=== PATIENT | female | born 1940 | race Asian ===

== ENCOUNTER 2021-12-23 20:55 | Inpatient (IN) | payer OTHER, MEDICARE, SELFPAY ==
[~2021-12-23] VITALS: Ht 149.9 cm; Wt 69.9 kg
[2021-12-23 20:55] VITALS: BP_SYST 205
--- NOTE | 2021-12-23 21:35 | NUR ---
Patient to ER bed 8 to gown for evaluation. Side rails up, bed in low and locked position.
--- NOTE | 2021-12-23 21:43 | NUR ---
Dr. Wiley with patient. Addendum: 12/23/21 at 2144 by [email or web address] ER Doctor, Dr. Wiley at bedside examining patient.
--- NOTE | 2021-12-23 22:08 | NUR ---
Spoke to patient's son, Karri, and was informed of patient's medical history per patient's son stated. Physician informed of patient's history and Dr. Saunders is patient's cardiac doctor in [facility] at [phone]. Physician informed that patient's son stated Dr. Saunders said patient is borderline hypertensive. Physician informed of patient's history of breast cancer, right sided mastectomy and sentinel lymph node removed, and physician informed of patient's OBGYN Dr. Winifred Martinez, phone number [phone]. Physician informed of patient's home medications per patient's son stated. Physician verbalized understanding, no further questions.
[2021-12-23] MEDS ORDERED: LIP40 PO (22:27)
[2021-12-23] MEDS ORDERED: ASPI-1393 PO (22:28)
[2021-12-23] MEDS ORDERED: ENALAPRILAT DIHYDRATE 1.25 MG/ML VIAL IVP ONE (22:30)
[2021-12-23 22:34] LABS: MEAN CORPUSCULAR HEMOGLOBIN 30 pg (27-31); MEAN CORPUSCULAR HGB CONC 33 % (32-36)
[2021-12-23 22:38] LABS: BASOPHILS % (AUTO) 0.1 % (0.0-2.0); EOSINOPHILS # (AUTO) 0.1 K/uL (0.0-0.4); EOSINOPHILS % (AUTO) 0.6 % (0.0-4.0); HEMATOCRIT 41.5 % (36-48); HEMOGLOBIN 13.8 g/dL (12.0-16.0); LYMPHOCYTES % (AUTO) 9.7 % (20.5-51.5); MEAN CORPUSCULAR VOLUME 91 fL (79.0-98.0); MONOCYTES # (AUTO) 0.2 K/uL (0.0-1.0); MONOCYTES % (AUTO) 2.1 % (1.7-9.3); NEUTROPHILS # (AUTO) 9.2 K/uL (1.8-7.7); NEUTROPHILS % (AUTO) 87.5 % (40.0-70.0); PLATELET COUNT (AUTO) 202 K/uL (130-430); RED BLOOD CELL COUNT(AUTO) 4.57 MIL/uL (4.2-6.2); RED CELL DISTRIBUTION WIDTH 14.5 % (9.0-15.0); WHITE BLOOD COUNT (AUTO) 10.5 K/uL (4.8-10.8)
[2021-12-23 23:13] LABS: CHLORIDE 100 mmol/L (98-107); POTASSIUM 3.9 mmol/L (3.5-5.1); SODIUM SERUM 135 mmol/L (136-145)
[2021-12-23 23:14] LABS: ALANINE AMINOTRANSFERASE 41 U/L (12-78); ANION GAP 11 (5-15); ASPARTATE AMINOTRANSFERASE 37 U/L (10-37); CALCIUM 9.4 mg/dL (8.4-11.0); CREATININE 0.82 mg/dL (0.55-1.30); GLUCOSE 173 mg/dL (70-99); TOTAL BILIRUBIN 0.3 mg/dL (0.0-1.0); UREA NITROGEN, BLOOD 20 mg/dL (8-21)
--- NOTE | 2021-12-23 23:14 | NUR ---
PATIENT LYING IN BED, NO C/O PAIN OR S/S OF DISTRESS. PATIENT CHEST RISE AND FALL SYMMETRICAL. PATIENT RESTING COMFORTABLY, BED IN LOW AND LOCKED POSITION, 3 BED RAILS UP.
[2021-12-23 23:15] LABS: ALBUMIN 3.9 g/dL (3.4-4.8)
[2021-12-23 23:24] LABS: LIPASE 214 U/L (73-393)
--- NOTE | 2021-12-23 23:58 | NUR ---
Dr. Marcano informed patient's stated patient's right lower extremity "feels warm," and patient "c/o pain." Doppler requested from Dr. Marcano. Dr. Marcano stated he "will examine patient first."
[2021-12-24] MEDS ORDERED: NACL 0.9% 1,000 ML IV SCH ×2 (02:00→05:45)
--- NOTE | 2021-12-24 04:53 | NUR ---
ATTEMPTED TO CALL PATIENT'S SON, PER PATIENT AND PATIENT'S 'S REQUEST TO NOTIFY PATIENT'S SON OF PATIENT ADMISSION. PATIENT'S SON, DIANA DID NOT ANSWER, COOKIE TO LEAVE MESSAGE, ANSWER MACHINE DID NOT MAKE SOUND TO LEAVE MESSAGE. WILL ATTEMPT TO REACH PATIENT'S SON AGAIN.
--- NOTE | 2021-12-24 05:11 | NUR ---
SPOKE TO PATIENT'S SON, DIANA, WHO STATES HE HAS POWER OF SPD MANAGER. PATIENT'S STATED THAT HER SON HAS POWER OF SPD MANAGER.INFORMED PATIENT'S SON THAT PATIENT IS GOING TO BE ADMITTED. PATIENT'S SON, DIANA, VERBALIZED UNDERSTANDING.
[2021-12-24] MEDS ORDERED: ONDANSETRON HCL 4 MG/2 ML VIAL IVP PRN (05:45)
[2021-12-24] MEDS ORDERED: HYDROcodone/ACETAMIN 7.5-325 MG TAB PO PRN (05:45)
[2021-12-24] MEDS ORDERED: ZOLPIDEM TARTRATE 5 MG TABLET PO PRN (05:45)
[2021-12-24] MEDS ORDERED: DOCUSATE SODIUM 100 MG/10 ML UDC PO PRN (05:45)
[2021-12-24] MEDS ORDERED: ACETAMINOPHEN 500 MG TABLET PO PRN (05:45)
[2021-12-24] MEDS ORDERED: MORPHINE 2 MG/ML INJ. SYRINGE IVP PRN (05:45)
[2021-12-24] MEDS ORDERED: guaiFENesin/DEXTROMETHORPHAN 10 ML UDC PO PRN (05:45)
--- NOTE | 2021-12-24 06:04 | NUR ---
DR. ALLEN SPOKE TO PATIENT AND PATIENT'S . PATIENT AND PATIENT'S INFORMED DR. ALLEN THAT THEY "WANT TO GO HOME," AND GO AMA.
--- NOTE | 2021-12-24 06:30 | NUR ---
CONSULTATION PAGED REASON FOR CONSULTATION:CHEST PAIN WAS CONSULT CALLED?Y PERSON WHO WAS NOTIFIED:LAZARA CONSULTING PHYSICIAN:NANCY CRYSTAL BEAN SNIPPER SPECIALTY:CARDIO BEAN SNIPPER PHONE NUMBER:[phone] REQUESTING PHYSICIAN:RYDER ZUÑIGA
--- NOTE | 2021-12-24 06:45 | NUR ---
pt.received via the er-dept.pt.admit dx.chest pain.language barrier extant;french, accompanied pt. presents swedish proficient.pt.presents no c/o pain:general/chest,nausea.pt.presents iv access location lt.hand;iv fluids initiated.pt.presents hx;breast cancer s/p mastectomy;old hx rt.breast.v/s assessed note b/p status elevated.call light/telephone placed w/in access of the pt.
[2021-12-24 06:57] VITALS: BP_SYST 164
--- NOTE | 2021-12-24 07:30 | NUR ---
ADMIT NOTE: Patient came from ER to the [facility] floor with a diagnosis of Chest Pain. Admission process initiated by night nurse. at the bedside,interpreted in Kinyarwanda. Patient is Kinyarwanda speaking lady, oriented to pain management, safety and call light-teach back done.
[2021-12-24 08:30] VITALS: BP_SYST 172
--- NOTE | 2021-12-24 08:40 | NUR ---
Cardio Rounds: Patient seen by Dr Scales in the room with families at the bedside,understands occitan ,interpreted in Albanian.Able to obtained medical history. With orders stopped iv fluids.
[2021-12-24] MEDS: ASPIRIN 81 MG TABLET(ECOTRIN) PO SCH (09:24)
[2021-12-24] MEDS: ATORVASTATIN 20 MG TABLET PO SCH (09:24)
[2021-12-24] MEDS: PANTOPRAZOLE SODIUM 40 MG TAB PO SCH (09:24)
[2021-12-24] MEDS: lisinopriL 20 MG TABLET PO SCH (09:25)
[2021-12-24 10:09] LABS: FREE T4 (FREE THYROXINE) 1.1 ng/dl (0.8-1.5); PHOSPHORUS 5.1 mg/dL (2.7-4.5); THYROID STIMULATING HORMONE 1.71 uIu/mL (0.36-3.74)
[2021-12-24 12:23] VITALS: BP_SYST 152
--- NOTE | 2021-12-24 15:39 | NUR ---
Nutrition Update Jose Eduardo Scale 17 noted. Pt admitted for chest pain/angina. Diet: cardiac, cardiac (12/24 Breakfast) & mechanical soft (12/24 Breakfast) -- 2 active, separate diet orders BMI: 31.1 kg/m2 RD to follow per nutrition care standards.
[2021-12-24 15:50] LABS: INR 0.9 (0.8-1.2); PROTHROMBIN TIME 9.3 SECS (9.5-12.5)
[2021-12-24 16:00] VITALS: BP_SYST 130
--- NOTE | 2021-12-24 18:30 | NUR ---
EVENING ROUNDS: PATIENT ATE DINNER THIS TIME. IV TO SALINE LOCK. CALL LIGHT WITH IN REACH. BED LOCKED AT LOWEST POSITION. BED ALARM ON. NO ACUTE DISTRESS.
[2021-12-24 19:00] VITALS: BP_SYST 154
--- NOTE | 2021-12-24 19:15 | NUR ---
change of shift.pt.presents quiescent affect calm,resting.family not present acting as educational sign language interpreter.language barrier extant. setswana.iv fluids d/c.iv access location lt.hand intact.general status stable,respiratory status stable@room air.call light/ telephone w/in access of the pt.
[2021-12-24 20:00] VITALS: BP_SYST 154
--- NOTE | 2021-12-24 20:00 | NUR ---
pt.assessed.v/s assessed values wnl.per flacc pain mgx pt.absent facial grimaces/body posturing.pt.assess for cleanliness pt.repositioned.call light/telephone placed w/in access of the pt.
--- NOTE | 2021-12-24 22:00 | NUR ---
pt.assessed.pt.presents quiescent affect;calm,somnolent.per flacc pain mgx pt.absent facial grimaces/body posturing. call light/telephone placed w/in access of the pt.
--- NOTE | 2021-12-25 | NUR ---
pt.assessed.v/s assessed values note b/p status.per flacc pain mgx pt.absent facial grimaces/body posturing.pt.assessed for cleanliness.pt.repositioned.call light/telephone placed w/in access of the pt.
[2021-12-25 00:27] VITALS: BP_SYST 145
--- NOTE | 2021-12-25 02:00 | NUR ---
pt.assessed.pt.presents quiescent affect calm,somnolent.per flacc pain mgx pt.absent facial grimaces/body posturing. pt.assessed for cleanliness.pt.repositioned.call light/telephone placed w/in access of the pt.
--- NOTE | 2021-12-25 04:00 | NUR ---
pt.assessed.pt.presents quiescent affect;calm,somnolent.per flacc pain mgx pt.absent facial grimaces/body posturing. pt.assessed for cleanliness.pt.repositioned.call light/telephone placed w/in access of the pt.
--- NOTE | 2021-12-25 04:43 | NUR ---
CALLED [facility] MAIL BOX IS FULL AND CAN NOT ACCEPT ANY MASSAGE SO I WILL PASS THIS INFORMATION TO MORNING STAFF
--- NOTE | 2021-12-25 04:47 | NUR ---
MAIL BOX IS FULL I COULD NOT LEAVE A MESSAGE FOR SWALLOW EVAL
--- NOTE | 2021-12-25 06:03 | NUR ---
pt.assessed.pt.presents quiescent affect calm,resting.per flacc pain mgx pt.absent facial grimaces/ body posturing. pt.assessed for cleanliness.pt.repositioned.call light/telephone placed w/in access of the pt.
[2021-12-25 06:17] LABS: BASOPHILS % (AUTO) 0.2 % (0.0-2.0); EOSINOPHILS # (AUTO) 0.2 K/uL (0.0-0.4); EOSINOPHILS % (AUTO) 2.3 % (0.0-4.0); HEMOGLOBIN 13.4 g/dL (12.0-16.0); LYMPHOCYTES # (AUTO) 1.5 K/uL (1.0-5.5); LYMPHOCYTES % (AUTO) 19.6 % (20.5-51.5); MEAN CORPUSCULAR HEMOGLOBIN 30 pg (27-31); MEAN CORPUSCULAR HGB CONC 33 % (32-36); MEAN CORPUSCULAR VOLUME 92 fL (79.0-98.0); MONOCYTES # (AUTO) 0.4 K/uL (0.0-1.0); MONOCYTES % (AUTO) 5.5 % (1.7-9.3); NEUTROPHILS # (AUTO) 5.7 K/uL (1.8-7.7); NEUTROPHILS % (AUTO) 72.4 % (40.0-70.0); PLATELET COUNT (AUTO) 198 K/uL (130-430); RED BLOOD CELL COUNT(AUTO) 4.46 MIL/uL (4.2-6.2); RED CELL DISTRIBUTION WIDTH 14.7 % (9.0-15.0); WHITE BLOOD COUNT (AUTO) 7.8 K/uL (4.8-10.8)
[2021-12-25 06:38] LABS: ANION GAP 10 (5-15); CALCIUM 8.2 mg/dL (8.4-11.0); CHLORIDE 103 mmol/L (98-107); CREATININE 0.82 mg/dL (0.55-1.30); GLUCOSE 111 mg/dL (70-99); POTASSIUM 4.2 mmol/L (3.5-5.1); SODIUM SERUM 138 mmol/L (136-145); UREA NITROGEN, BLOOD 21 mg/dL (8-21)
--- NOTE | 2021-12-25 07:30 | NUR ---
rn opening note report was endorsed by night nurse. patient is awake and alert, sitting up in bed. Patient educated onc all light, call light is with her, patient is eating breakfast in bed. patient shows no signs of any distress, no complaints at this time.
[2021-12-25 08:00] VITALS: BP_SYST 150
[2021-12-25] MEDS: PANTOPRAZOLE SODIUM 40 MG TAB PO SCH (08:18)
[2021-12-25] MEDS: ASPIRIN 81 MG TABLET(ECOTRIN) PO SCH (08:18)
[2021-12-25] MEDS: ATORVASTATIN 20 MG TABLET PO SCH (08:18)
[2021-12-25] MEDS: lisinopriL 20 MG TABLET PO SCH (08:18)
--- NOTE | 2021-12-25 08:23 | NUR ---
medication Patients scheduled medication. INCONTINENCE CARE PROVIDED.PATIENT EDUCATED MANAGER INVENTORY MANAGEMENT LIGHT FOR ASSISTANCE. CALL LIGHT IS WITH HER. PATIENT HAS HER CELL PHONE WITH HER. NO SIGNS OF ANY DISTRESS, NO COMPLAINTS AT THIS TIME.
[2021-12-25] MEDS ORDERED: LISI20TA30 PO (08:42)
[2021-12-25] MEDS ORDERED: POTASSIUM CHLORIDE 20 MEQ TAB.PRT.SR PO PRN (09:00)
--- NOTE | 2021-12-25 09:31 | NUR ---
CALLED [facility] RE: FOLLOW UP SPEECH THERAPY CONSULT FOR SWALLOWING EVAL. STILL MAILBOX IS FULL AND CANNOT ACCEPT MESSAGES ([phone]). SPOKE TO AIXA MARLOW AND HE SAID THAT HE WILL TAKE CARE OF THE CONSULT. KASHMIR WORKS WITH [facility].
--- NOTE | 2021-12-25 10:26 | NUR ---
Discharge Planning: DCP faxed pt referral to [facility] [phone] and [facility] [phone] for DME-FWW. DCP to follow up. Addendum: 12/25/21 at 1256 by Letty Lutz DP [facility] [phone] accepted pt and [facility] [phone] will contact pt for FWW delivery. DCP made nurse aware.
[2021-12-25 11:37] VITALS: BP_SYST 155
--- NOTE | 2021-12-25 11:37 | NUR ---
PT WA S SEEN FOR DYSPHAGIA. PT WAS ABLE TO SAFELY SWALLOW MS DIET WITH THIN LIQUID. RECOMMENDATION MS DIET WITH THIN LIQUID
--- NOTE | 2021-12-25 12:00 | NUR ---
rn rounding patient is awake and alert sitting up in bed. no complaints at this time. call light is with her, educated to use for assistance. no other needs this time.
[2021-12-25 13:04] VITALS: BP_SYST 155
--- NOTE | 2021-12-25 14:18 | NUR ---
discharge patient discharged per order. patient is awake and alert, sitting up in bed, iv catheter removed catheter intact applied gauze and tape to insertion site. Patient has all the belongings are with her. patient educated on paper work , paper work was also given to trolley coach driver. Patient has no complaints at this time. wheeled out via personal wheel chair. ID band was removed. patients son Karri is aware that patient is going back home.
== END 2021-12-25 14:18 | disposition home health service (06) | DRG 303 ==
LOC: SED 20:55 → STU 12-24 01:57
PROVIDERS: ADMIT Family Medicine; ATTEND Family Medicine
DX: I25.119 Atherosclerotic heart disease of native coronary artery with unspecified angina pectoris (principal); E87.1 Hypo-osmolality and hyponatremia; I24.9 Acute ischemic heart disease, unspecified; I10 Essential (primary) hypertension; M19.90 Unspecified osteoarthritis, unspecified site; Z20.822 Contact with and (suspected) exposure to COVID-19; E78.5 Hyperlipidemia, unspecified; Z79.82 Long term (current) use of aspirin; Z90.11 Acquired absence of right breast and nipple; Z85.3 Personal history of malignant neoplasm of breast; Z85.118 Personal history of other malignant neoplasm of bronchus and lung; Z95.5 Presence of coronary angioplasty implant and graft; Z79.899 Other long term (current) drug therapy
CPT/HCPCS: 36415; 71045; 80048; 80053; 80061; 82150; 83036; 83605; 83690; 83735; 83880; 84100; 84439; 84443; 84484; 85025; 85610-TC; 85730-TC; 92610-GN; 93005; 93306; 96374; 99285; G0378